=== PATIENT | male | born 1950 | race Caucasian/White ===

== ENCOUNTER → 2020-01-20 15:11 | Outpatient (BNVA) | payer MEDICARE, OTHER, SELFPAY | PROVIDERS: Family Provider Family Medicine; PCP Family Medicine; Visit Provider Internal Medicine Cardiovascular Disease | DX: I10 Essential (primary) hypertension (principal); I48.91 Unspecified atrial fibrillation; Z86.73 Personal history of transient ischemic attack (TIA), and cerebral infarction without residual deficits; I65.29 Occlusion and stenosis of unspecified carotid artery; E11.9 Type 2 diabetes mellitus without complications; E78.5 Hyperlipidemia, unspecified; Z87.891 Personal history of nicotine dependence | CPT/HCPCS: 80053; 85025 ==

== ENCOUNTER → 2020-01-22 15:11 | Outpatient (BNVA) | payer MEDICARE, OTHER, SELFPAY | PROVIDERS: Family Provider Family Medicine; PCP Family Medicine; Visit Provider Internal Medicine Cardiovascular Disease | DX: I10 Essential (primary) hypertension (principal); I48.91 Unspecified atrial fibrillation; Z86.73 Personal history of transient ischemic attack (TIA), and cerebral infarction without residual deficits; I65.29 Occlusion and stenosis of unspecified carotid artery; E11.9 Type 2 diabetes mellitus without complications; E78.5 Hyperlipidemia, unspecified | CPT/HCPCS: 80061; 83721; 86141 ==

== ENCOUNTER 2020-02-12 14:23 | Outpatient (CLI) | payer MEDICARE, SELFPAY ==
--- NOTE | 2020-02-12 15:00 | USCV_ITS ---
[place] Age[place] 69 Gender: M : 1950 Exam Date: 02/12/2020 14:52 Ordering Phys: Carmella Jaramillo MD ([email or web address]) Technologist: Haylee Tineo Exam Location: [facility] [place] Indication: KNOWN LT SIDED OCCLUSION. Risk Factors: Unknown Previous Vascular Surgery: None Right Brachial BP: / Left Brachial BP: / Right Left Velocity (cm/s) Spectral Plaque Velocity (cm/s) Spectral Plaque Syst/Diast Broadening Syst/Diast Broadening 53.30/ 12.10 Prox CCA 54.70 / 12.40 40.30/ 10.00 Mid CCA 24.50 / 8.30 45.50/ 13.40 Distal CCA 24.10 / 7.50 73.70/ 28.20 Prox ICA / 70.50/ 33.20 Mid ICA / 68.90/ 34.00 Distal ICA / 135.50 ECA 116.70 1.83 ICA/CCA Antegrade Vertebral Antegrade 48.10/ 30.70 cm/s 77.10/ 21.40 cm/s Tri Subclavian Tri 120.7 121.0 0 0 FINDINGS No flow was detected in the left internal carotid artery. Moderate heterogeneous plaques of the right bifurcation and proximal internal carotid artery. Antegrade flow in the vertebral arteries bilaterally. Normal Doppler flow velocities in the external carotid arteries bilaterally Intimal thickening and minimal plaques in the common carotid arteries bilaterally CONCLUSIONS 1. 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 Moderate heterogeneous plaques of the right bifurcation and proximal internal carotid arterywith velocity elevation consistent with 16-49% stenosis. 3. Intimal thickening and minimal plaque in the common carotid arteries bilaterally No similar previous studies are available for comparison Dr Tressa Santizo MD [facility] (Electronically Signed) Final Date: 13 February 2020 18:47 S
== END 2020-02-12 14:24 | disposition home or self-care (01) ==
LOC: RAD 14:30
PROVIDERS: PCP Family Medicine; Visit Provider Internal Medicine Cardiovascular Disease
DX: I65.23 Occlusion and stenosis of bilateral carotid arteries (principal)
CPT/HCPCS: 93880

== ENCOUNTER → 2022-03-09 15:07 | Outpatient (BNVA) | payer MEDICARE, OTHER, SELFPAY | PROVIDERS: PCP Family Medicine; Visit Provider Internal Medicine Cardiovascular Disease | DX: I48.91 Unspecified atrial fibrillation (principal); Z79.01 Long term (current) use of anticoagulants; I10 Essential (primary) hypertension; I65.29 Occlusion and stenosis of unspecified carotid artery; E11.9 Type 2 diabetes mellitus without complications; Z79.84 Long term (current) use of oral hypoglycemic drugs; Z86.73 Personal history of transient ischemic attack (TIA), and cerebral infarction without residual deficits; Z87.891 Personal history of nicotine dependence | CPT/HCPCS: 99214 ==

== ENCOUNTER → 2023-02-21 14:34 | Outpatient (BNVA) | payer MEDICARE, OTHER, SELFPAY | PROVIDERS: PCP Family Medicine; Visit Provider Internal Medicine Cardiovascular Disease | DX: I48.91 Unspecified atrial fibrillation (principal); I10 Essential (primary) hypertension; I65.29 Occlusion and stenosis of unspecified carotid artery; E11.9 Type 2 diabetes mellitus without complications; Z86.73 Personal history of transient ischemic attack (TIA), and cerebral infarction without residual deficits; F17.200 Nicotine dependence, unspecified, uncomplicated; Z79.01 Long term (current) use of anticoagulants; Z79.84 Long term (current) use of oral hypoglycemic drugs | CPT/HCPCS: 99214 ==

== ENCOUNTER → 2024-02-14 10:34 | Outpatient (BNVA) | payer MEDICARE, OTHER, SELFPAY | PROVIDERS: PCP Family Medicine; Visit Provider Nurse Practitioner Family | DX: I48.0 Paroxysmal atrial fibrillation (principal); I10 Essential (primary) hypertension; E78.5 Hyperlipidemia, unspecified; E11.9 Type 2 diabetes mellitus without complications; Z79.01 Long term (current) use of anticoagulants | CPT/HCPCS: 99214 ==

== ENCOUNTER → 2025-02-11 13:22 | Outpatient (BNVA) | payer MEDICARE, OTHER, SELFPAY | PROVIDERS: PCP Family Medicine; Visit Provider Internal Medicine Cardiovascular Disease | DX: I10 Essential (primary) hypertension (principal); I48.91 Unspecified atrial fibrillation; Z79.01 Long term (current) use of anticoagulants; Z87.891 Personal history of nicotine dependence | CPT/HCPCS: 99214 ==